=== PATIENT | male | born 1995 ===

== ENCOUNTER 2021-12-12 13:45 | Outpatient (RCR) | payer BC | END 2022-01-02 | LOC: PT 13:45 | PROVIDERS: ATTEND Neurological Surgery | DX: M51.16 Intervertebral disc disorders with radiculopathy, lumbar region (principal) ==

== ENCOUNTER 2022-01-09 11:00 | Outpatient (RCR) | payer BC | END 2022-02-01 | LOC: PT 11:00 | PROVIDERS: ATTEND Neurological Surgery | DX: M51.16 Intervertebral disc disorders with radiculopathy, lumbar region (principal) ==